=== PATIENT | female | born 1965 | race Caucasian/White ===

== ENCOUNTER 2018-06-15 17:12 | Emergency (ER) | payer SELFPAY ==
--- NOTE | 2018-06-15 18:13 | ED PDOC ---
HPI: Influenza Time Seen by Provider: 06/15/18 17:57 Chief Complaint: Cough, Cold, Congestion Chief Complaint (Provider): Abdominal pain History Per: Patient Exam Limitations: no limitations Additional complaint(s):: Patient is a 53 y/o female with no significant PMHx who presents to the ED complaining of RUQ abdominal pain and right lower rib pain, onset x3 days ago. Patient reports she has also had a cough for the past x3 weeks. Patient denies fever, SOB, nausea, vomiting, diarrhea. Past Medical History Reviewed: Historical Data, Nursing Documentation, Vital Signs Vital Signs: Last Vital Signs Temp 98.5 F 06/15/18 17:27 Pulse 71 06/15/18 17:27 Resp 20 06/15/18 17:27 BP 148/83 06/15/18 17:27 Pulse Ox 99 06/15/18 17:27 - Medical History PMH: No Chronic Diseases - Surgical History Surgical History: (x3) - Family History Family History: States: Unknown Family Hx - Immunization History Hx Tetanus Toxoid Vaccination: Yes (2014) Hx Influenza Vaccination: No Hx Pneumococcal Vaccination: No - Home Medications Home Medications: Ambulatory Orders Medication Instructions Recorded Azithromycin [Zithromax] 250 mg PO DAILY #6 tab 06/15/18 Promethazine/Codeine 5 ml PO Q8 #60 ml 06/15/18 [Codeine/Promethazine 10 MG/5 Ml-6.25 MG/5 Ml] - Allergies Allergies/Adverse Reactions: Allergies Allergy/AdvReac Type Severity Reaction Status Date / Time No Known Allergies Allergy Verified 06/15/18 17:27 Review of Systems ROS Statement: Except As Marked, All Systems Reviewed And Found Negative Constitutional: Negative for: Fever Cardiovascular: Positive for: Chest Pain (rib pain) Respiratory: Negative for: Shortness of Breath Gastrointestinal: Positive for: Abdominal Pain (RUQ). Negative for: Nausea, Vomiting, Diarrhea Physical Exam - Reviewed Nursing Documentation Reviewed: Yes Vital Signs Reviewed: Yes - Physical Exam Appears: Positive for: Well, Non-toxic, No Acute Distress Head Exam: Positive for: ATRAUMATIC, NORMOCEPHALIC Skin: Positive for: Normal Color, Warm, DRY Eye Exam: Positive for: EOMI, Normal appearance, PERRL Cardiovascular/Chest: Positive for: Regular Rate, Rhythm. Negative for: Murmur Respiratory: Positive for: Normal Breath Sounds. Negative for: Respiratory Distress Gastrointestinal/Abdominal: Positive for: Tenderness (mild RUQ) Back: Negative for: L CVA Tenderness, R CVA Tenderness Neurologic/Psych: Positive for: Alert, Oriented. Negative for: Motor/Sensory Deficits Medical Decision Making Medical Decision Making: Time: 18:03 Initial Plan: Abdomen US CXR Scribe Attestation: Documented by Bear Jaimes acting as a scribe for Denny Prado MD Provider Scribe Attestation: All medical record entries made by the Scribe were at my direction and personally dictated by me. I have reviewed the chart and agree that the record accurately reflects my personal performance of the history, physical exam, medical decision making, and the department course for this patient. I have also personally directed, reviewed, and agree with the discharge instructions and disposition. - ECG O2 Sat by Pulse Oximetry: 99 Disposition - Clinical Impression Clinical Impression: Bronchitis, Muscle strain - Patient ED Disposition Is Patient to be Admitted: No Counseled Patient/Family Regarding: Studies Performed, Diagnosis, Need For Followup, Rx Given - Disposition Referrals: [facility] [Outside] Disposition: Routine/Home Disposition Time: 20:17 Condition: FAIR Prescriptions: Azithromycin [Zithromax] 250 mg PO DAILY #6 tab Promethazine/Codeine [Codeine/Promethazine 10 MG/5 Ml-6.25 MG/5 Ml] 5 ml PO Q8 #60 ml Instructions: Muscle Strain, Acute Bronchitis Forms: [employer] (Spanish)
--- NOTE | 2018-06-15 18:27 | RAD ---
HISTORY: Cough COMPARISON: No prior. TECHNIQUE: Chest PA and lateral FINDINGS: Examination limited by habitus and hypoinflation. LUNGS: Bilateral hilar prominence. No focal consolidation. Please note that chest x-ray has limited sensitivity for the detection of pulmonary masses. PLEURA: No significant pleural effusion identified. No definite pneumothorax . CARDIOVASCULAR: The cardiomediastinal silhouette appears within normal limits of size. No atherosclerotic calcification present. OSSEOUS STRUCTURES: No acute osseous abnormality identified. VISUALIZED UPPER ABDOMEN: Unremarkable. OTHER FINDINGS: None. IMPRESSION: Bilateral hilar prominence. No focal consolidation.
[2018-06-15 20:24] VITALS: BP 116/85; PULSE 73; RESP 18; TEMP 98; O2SAT 96
--- NOTE | 2018-06-16 10:31 | US ---
Date of service: 06/15/2018 HISTORY: FLANK PAIN. COMPARISON: None. TECHNIQUE: Sonographic evaluation of the right upper quadrant of the abdomen. FINDINGS: LIVER: Measures 20.4 cm in length. Patent portal vein. Portal venous flow: Hepatopetal. Increased echogenicity of the liver parenchyma. No mass. No intrahepatic bile duct dilatation. GALLBLADDER: Gallbladder wall thickening. No gallstones. COMMON BILE DUCT: Measures 5.6 mm. No stones. No dilatation. PANCREAS: Unremarkable as visualized. No mass. No ductal dilatation. RIGHT KIDNEY: Measures 6 x 15.2 cm in length. Normal echogenicity. No calculus, mass, or hydronephrosis. Simple cyst upper pole 6 x 6.2 x 6.9 cm. AORTA: No aneurysmal dilatation. IVC: Unremarkable. OTHER FINDINGS: None . IMPRESSION: Hepatomegaly, hepatic steatosis. No significant or acute findings to account for/ related to the clinical presentation. Additional benign and/or incidental findings described above. Concordant findings (preliminary report) provided by [facility].
== END 2018-06-15 20:26 | disposition home or self-care (01) ==
LOC: H.ER 17:12
DX: J40 Bronchitis, not specified as acute or chronic (principal); R10.11 Right upper quadrant pain